=== PATIENT | female | born 1935 ===

== ENCOUNTER 2019-05-26 11:28 | Day surgery (SDC) | payer MEDICARE, BC ==
[~2019-05-26 11:28] MED LIST: Buffered Lidocaine 1% SYRIN* 1 ML/SYRINGE INTRADERM ONE; Dexamethasone IV* 4 MG/ML 1 ML (4 MG) IV SLOW PU ONE; DiMENhydriNATE IV* 50 MG/ML VIAL IV PUSH PRN; Famotidine IV* 10 MG/ML 2 ML (20 mg) IV ONE; HYDROcodone/ACETAMIN 5-325 MG* 1 TAB PO PRN; Lactated Ringers 1000 ML Bag* 1,000 ML IV SCH; Naloxone* 0.4 MG/ML 1 ML VIAL IV PRN; fentaNYL* 50 MCG/ML 2 ML VIAL (100 MCG VIAL) IV PRN; oxyCODONE/Acetamin 5/325 MG* TAB PO PRN
[2019-05-26] MEDS ORDERED: Famotidine IV* 10 MG/ML 2 ML (20 mg) ONE (11:43)
[2019-05-26] MEDS ORDERED: Dexamethasone IV* 4 MG/ML 1 ML (4 MG) ONE (11:43)
[2019-05-26] MEDS ORDERED: ceFAZolin 2 GM in NS PREMIX(*) 2 GM/100 ML BAG IVPB ONE (11:43)
[2019-05-26] MEDS ORDERED: Bupivacaine 0.25% EPI 200,000* 30 ML SDV ONE (13:29)
[2019-05-26] MEDS ORDERED: Bupivacaine 0.25% SDV* 30 ML ONE (13:29)
[2019-05-26] MEDS ORDERED: fentaNYL* 50 MCG/ML 2 ML VIAL (100 MCG VIAL) ONE (13:33)
[2019-05-26] MEDS ORDERED: Midazolam* 1 MG/ML 2 ML VIAL (2 MG) ONE (13:33)
[2019-05-26] MEDS ORDERED: Lidocaine 2% PF * 5 ML VIAL ONE (13:34)
[2019-05-26] MEDS ORDERED: Propofol* 10 MG/ML 20 ML BTL ONE (13:34)
[2019-05-26] MEDS ORDERED: Phenylephrine 40 MCG/ML SYRINGE ONE (13:56)
[2019-05-26] MEDS ORDERED: Ondansetron INJ* 2 MG/ML VIAL ONE (14:18)
[2019-05-26] MEDS ORDERED: Labetalol IV* 5 MG/ML 20 ML VIAL ONE (14:22)
[2019-05-26 15:17] VITALS: BP 172/74
--- NOTE | 2019-05-26 21:06 | OP ---
DATE OF OPERATION: 05/26/19 - [facility] DATE OF : 37 SURGEON: Waldemar Livingston MD INDUSTRIAL AERIAL INSTALLER: JOE Gramajo. An retail event and sales assistant was needed for the procedure to aid in positioning of the arm and retraction. ANESTHESIOLOGIST: Dr. Gonzales. ANESTHESIA: General. PRE-OP DIAGNOSES: 1. Right carpal tunnel syndrome. 2. Right cubital tunnel syndrome. POST-OP DIAGNOSES: 1. Right carpal tunnel syndrome. 2. Right cubital tunnel syndrome. OPERATIVE PROCEDURE: 1. Right endoscopic carpal tunnel release. 2. Right ulnar nerve in situ decompression of the elbow. INDICATIONS: Ms. Shaw has quite a bit of discomfort with regards to peripheral nerve compression including carpal tunnel syndrome as well as cubital tunnel syndrome. We talked about her treatment options. She had wanted to proceed with surgery. ESTIMATED BLOOD LOSS: 2 mL. COMPLICATIONS: None. FINDINGS: See above and below. DESCRIPTION OF PROCEDURE: Ms. Shaw was seen in the preoperative holding area. The correct site, side, and procedure were identified. We came back to the operating room. The arm was prepped and draped in the usual fashion and a time-out was performed. The arm was exsanguinated with the Esmarch and the tourniquet was inflated to 225 mmHg. I first made a 1 cm transverse incision just ulnar to the palmaris longus tendon. The distal antebrachial fascia was spread transversely and a 2-prong skin hook was placed under the fascia. I dilated and dried out the carpal tunnel and then the MicroAire endoscopic carpal tunnel system was introduced into the carpal tunnel. The release was carried out from distal to proximal under direct visualization using the camera. Once I confirmed that the entirety of the transverse carpal was released, I had released the distal antebrachial fascia proximally with the tenotomy scissors. The wound was then irrigated out and skin closed with 4-0 Prolene suture and Steri-Strips. I then made a curvilinear incision centered over the cubital tunnel. Dissection was carried down through subcutaneous tissue. I began the decompression by opening up the superficial FCU fascia just distal to the Chowdary's ligament. The two ends of the FCU were split. The subfascial layer was then incised. I then came proximally and released Chowdary's ligament. The nerve was very compressed right underneath the distal aspect of Chowdary's ligament. I went ahead and carried the release up all the way proximally up through the arcade of [place]. After I had done this, there was a little 1 cm segment right under the distal aspect of Chowdary's ligament where the nerve had been compressed, but there was no nerve instability. I, therefore obtained hemostasis with Bovie. The wound was irrigated out. Subcutaneous tissue was reapproximated with 3-0 Vicryl suture and the skin was closed with 4-0 Monocryl and Steri-Strips. The wound was dressed with 4x4's, sterile Webril, and then an Jose L bandage was applied. Tourniquet was deflated. She was taken to the recovery room in stable condition. [id number]/CPS #: [id number] MTDD
== END 2019-05-26 15:45 | disposition home or self-care (01) ==
LOC: OREAST 11:28
PROVIDERS: ATTEND Orthopaedic Surgery Hand Surgery
DX: G56.01 Carpal tunnel syndrome, right upper limb (principal); G56.21 Lesion of ulnar nerve, right upper limb; I10 Essential (primary) hypertension; E89.0 Postprocedural hypothyroidism; Z85.850 Personal history of malignant neoplasm of thyroid; D64.9 Anemia, unspecified; M19.90 Unspecified osteoarthritis, unspecified site; J45.909 Unspecified asthma, uncomplicated
CPT/HCPCS: J0690; J1100; J2250; J2405; J2704; J3010; J3490